=== PATIENT | male | born 2005 | race Caucasian/White ===

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

== ENCOUNTER 2025-01-23 09:55 | Emergency (ER) | payer BC, MEDICAID, SELFPAY ==
[2025-01-23 09:59] VITALS: BP 133/74; PULSE 76; RESP 18; TEMP 36.6; O2SAT 98
== END 2025-01-23 10:26 | disposition left against medical advice (07) ==
PROVIDERS: Emergency Provider General Practice
DX: Z53.21 Procedure and treatment not carried out due to patient leaving prior to being seen by health care provider (principal)